=== PATIENT | female | born 1980 | race Asian ===

== ENCOUNTER 2017-08-17 16:02 | Emergency (ER) | payer OTHER ==
[~2017-08-17] VITALS: Ht 152.4 cm; Wt 76.6 kg
[2017-08-17] MEDS ORDERED: ALBUTEROL/IPRATROPIUM 2.5MG/0.5MG, 3 ML NPPB ONE (16:30)
[2017-08-17] MEDS ORDERED: PHENYLEPHRINE NASAL 1%, 15ML SPRAY ONE ×2 (16:34→17:09)
[2017-08-17] MEDS ORDERED: ALBUTEROL/IPRATROPIUM 2.5MG/0.5MG, 3 ML ONE (16:34)
[2017-08-17] MEDS ORDERED: PHENYLEPHRINE NASAL 1%, 15ML SPRAY NAS ONE (17:00)
[2017-08-17 17:17] VITALS: BP 134/85
== END 2017-08-17 17:42 | disposition home or self-care (01) ==
LOC: ED 17:00
DX: J45.30 Mild persistent asthma, uncomplicated (principal)
CPT/HCPCS: 71046; 94640; 99284; J7620

== ENCOUNTER 2020-02-15 09:16 | Emergency (ER) | payer OTHER ==
[~2020-02-15] VITALS: Ht 160 cm; Wt 70.2 kg
[~2020-02-15 09:16] MED LIST: ADVAIR INH; ALBUTEROL INH; IMITREX PO; OMEP20TA62 PO
--- NOTE | 2020-02-15 10:05 | NUR ---
PT CAME IN CO OF NVD AND RIGHT FLANK PAIN X 3 DAYS. PT STATES SHE CANT KEEP ANYTHING DOWN. PT ALSO STATES THAT SHE JUST FINISHED A COURSE OF ABX FROM HER DENTIST FOR A ROOT CANAL. MD IS BEDSIDE FOR ASSESMENT. PT CONNECTED TO MONITORING EQUIPMENT. BLANKETS PROVIDED. CALL LIGHT WITHIN REACH
[2020-02-15] MEDS ORDERED: ONDANSETRON ODT 4 MG ONE (10:07)
[2020-02-15 10:24] LABS: MICROSCOPIC NOT IND
--- NOTE | 2020-02-15 10:27 | NUR ---
VERBAL ORDER FROM DR MCELROY FOR GUERDA ENTERED. PT MEDICATED PER MAR
[2020-02-15] MEDS ORDERED: ONDANSETRON ODT 4 MG PO ONE (10:30)
--- NOTE | 2020-02-15 10:36 | NUR ---
PT CANT PROVIDE STOOL SAMPLE AT THIS TIME
[2020-02-15 10:42] LABS: BASOPHILS # (AUTO) 0.07 x10^3/uL (0-0.1); BASOPHILS % (AUTO) 1 % (0-1); EOSINOPHILS # (AUTO) 0.16 x10^3/uL (0-0.4); EOSINOPHILS % (AUTO) 3 % (1-7); LYMPHOCYTES # (AUTO) 2.14 x10^3/uL (1-3.4); LYMPHOCYTES % (AUTO) 38 % (22-44); MD NO; MEAN CORPUSCULAR HEMOGLOBIN 22.3 pg (27.0-34.8); MEAN CORPUSCULAR HGB CONC 31.6 g/dL (32.4-35.8); MEAN CORPUSCULAR VOLUME 70.6 fL (80-100); MONOCYTES # (AUTO) 0.23 x10^3/uL (0.2-0.8); MONOCYTES % (AUTO) 4 % (2-9); NEUTROPHILS # (AUTO) 2.98 x10^3/uL (1.8-6.8); NEUTROPHILS % (AUTO) 53 % (42-75); PLATELET COUNT 449 x10^3/uL (130-400); RED BLOOD COUNT 5.36 x10^6/uL (3.82-5.3); RED CELL DISTRIBUTION WIDTH 16.1 % (9.6-15.2)
[2020-02-15 10:51] LABS: ALANINE AMINOTRANSFERASE 36 U/L (12-78); ALBUMIN 4.1 g/dL (3.4-5.0); ANION GAP 4 mmol/L (5-15); CALCIUM 9.3 mg/dL (8.5-10.1); CHLORIDE 109 mmol/L (98-107); CREATININE 0.81 mg/dL (0.55-1.02)
--- NOTE | 2020-02-15 10:55 | NUR ---
REPORT FROM BAYLEE BAE.
[2020-02-15 10:56] LABS: ALKALINE PHOSPHATASE 74 U/L (45-117); BILIRUBIN,TOTAL 0.3 mg/dL (0.2-1.0); TOTAL PROTEIN 8.3 g/dL (6.4-8.2)
--- NOTE | 2020-02-15 11:09 | NUR ---
UNABLE TO PROVIDE STOOL SAMPLE AT THIS TIME.
[2020-02-15 11:26] VITALS: BP 132/68
== END 2020-02-15 11:42 | disposition home or self-care (01) ==
LOC: ED 10:08
DX: K52.9 Noninfective gastroenteritis and colitis, unspecified (principal)
CPT/HCPCS: 36415; 74022; 80053; 81003; 84703; 85025; 99284; Q0162